=== PATIENT | male | born 1965 ===

== ENCOUNTER 2017-06-16 17:11 | Emergency (ER) | payer MEDICAID, OTHER ==
[2017-06-16 17:16] VITALS: BMI 29.2
[2017-06-16] MEDS ORDERED: Sodium Chloride 0.9% 1,000 ML IV STA (18:05)
--- NOTE | 2017-06-16 18:10 | ED PDOC ---
Arrival/HPI - General Chief Complaint: Headache Time Seen by Provider: 06/16/17 17:24 Historian: Family (daughter translated ) EM Caveat: Language Barrier - History of Present Illness Narrative History of Present Illness (Text): 06/16/17 18:10 A 51 year old male, who has a past medical history of migraines, presents to the emergency department with his daughter for severe headache with nausea and dizziness, which began about 5 hours ago. The daughter translates completely for the patient. The patient admits that the headache worsened as time goes on rather a severe sudden onset presentation. The features feel like previous migraines, per patient. He denies any vomiting, chest pain, focal weakness, fever, abdominal pain, or any other complaints at this time. Time/Duration: 4-6 hours (x5 hours) Symptom Onset: Sudden Symptom Course: Unchanged Activities at Onset: Rest Context: Home Past Medical History - Provider Review Nursing Documentation Reviewed: Yes - Infectious Disease Hx of Infectious Diseases: None - Cardiac Hx Cardiac Disorders: No (pt denies) - Pulmonary Hx Respiratory Disorders: No - Neurological Hx Migraine: Yes - HEENT Hx HEENT Disorder: No - Renal Hx Renal Disorder: No - Endocrine/Metabolic Hx Endocrine Disorders: No - Hematological/Oncological Hx Blood Disorders: No - Integumentary Hx Dermatological Disorder: No - Musculoskeletal/Rheumatological Hx Musculoskeletal Disorders: No - Gastrointestinal Hx Gastritis: Yes - Genitourinary/Gynecological Hx Genitourinary Disorders: Yes Hx Prostate Problems: Yes - Psychiatric Hx Psychophysiologic Disorder: Yes Hx Anxiety: Yes Hx Depression: Yes Hx Substance Use: No - Anesthesia Hx Anesthesia: No Family/Social History - Physician Review Nursing Documentation Reviewed: Yes Family/Social History: Unknown Family HX Smoking Status: Never Smoked Hx Alcohol Use: No Hx Substance Use: No Allergies/Home Meds Allergies/Adverse Reactions: Allergies No Known Allergies Allergy (Verified 11/17/15 13:48) Review of Systems - Physician Review All systems were reviewed & negative as marked: Yes - Review of Systems Respiratory: absent: SOB Cardiovascular: absent: Chest Pain Gastrointestinal: Nausea. absent: Vomiting Neurological: Headache, Dizziness Physical Exam Vital Signs Reviewed: Yes Vital Signs Temp Pulse Resp BP Pulse Ox 06/16/17 19:15 78 16 122/67 97 06/16/17 19:12 97.6 F 68 18 116/70 100 06/16/17 17:19 97.5 F L 64 18 110/70 97 Temperature: Afebrile Blood Pressure: Normal Pulse: Regular Respiratory Rate: Normal Appearance: Positive for: Well-Appearing, Non-Toxic, Comfortable Pain Distress: None Mental Status: Positive for: Alert and Oriented X 3 - Systems Exam Head: Present: Atraumatic, Normocephalic Pupils: Present: PERRL Extroacular Muscles: Present: EOMI Conjunctiva: Present: Normal Mouth: Present: Moist Mucous Membranes Pharnyx: Present: Normal. No: ERYTHEMA, EXUDATE Neck: Present: Normal Range of Motion Respiratory/Chest: Present: Clear to Auscultation, Good Air Exchange. No: Respiratory Distress, Accessory Muscle Use Cardiovascular: Present: Regular Rate and Rhythm, Normal S1, S2. No: Murmurs Abdomen: Present: Normal Bowel Sounds. No: Tenderness, Distention, Peritoneal Signs Back: Present: Normal Inspection Upper Extremity: Present: Normal Inspection. No: Cyanosis, Edema Lower Extremity: Present: Normal Inspection. No: Edema Neurological: Present: GCS=15, CN II-XII Intact, Speech Normal, Motor Func Grossly Intact, Normal Sensory Function, Gait Normal Skin: Present: Warm, Dry, Normal Color. No: Rashes Psychiatric: Present: Alert, Oriented x 3, Normal Insight, Normal Concentration Medical Decision Making ED Course and Treatment: 06/16/17 18:23 Impression: A 51 year old male with a headache. Differential Diagnosis included but are not limited to: migraine headache vs tension headache vs SAH Plan: -- Brain CT -- Labs -- Pepcid, Toradol, Reglan, IV Fluids -- Reassess and disposition Prior Visits: Notes and results from previous visits were reviewed. The patient was last seen in the emergency department on 11/17/15 for fever. The patient was discharged home. Progress Notes: 06/16/17 19:59 CT Brain: FINDINGS: BRAIN: No significant acute abnormality identified. No acute hemorrhage seen within the brain. No acute extra-axial fluid collections visualized. No evidence of significant mass effect within the brain. Normal medley-white matter differentiation. VENTRICLES: No evidence of significant hydrocephalus. BONES/JOINTS: Incidental dense, well-defined 1.5 x 0.5 cm sclerotic lesion in the right frontal skull anteriorly, most likely representing a bone island. This has nonaggressive features by CT. SOFT TISSUES: No acute abnormality of the visualized soft tissues is seen. SINUSES: Mild sinus inflammatory disease. There is mild to moderate mucosal thickening in the bilateral ethmoid sinuses and mild mucosal thickening in the right sphenoid and right frontal sinuses. No evidence of sinus fluid levels. MASTOID AIR CELLS: Mastoid air cells appear clear. IMPRESSION: - No acute findings seen within the brain. - Mild sinus inflammatory disease. - See above for remaining findings. Patient with noted history with normal neuro exam. Brain CT results as noted with no acute findings. Labs are unremarkable. Patient says he feels much better after meds - will dc on fioricet and have him f/u neuro. - Lab Interpretations Lab Results: 06/16/17 17:40 06/16/17 17:40 Lab Results 06/16/17 17:40: Sodium 138, Potassium 3.7, Chloride 98, Carbon Dioxide 28, Anion Gap 16, BUN 18, Creatinine 1.1, Est GFR ( Amer) > 60, Est GFR (Non- Af Amer) > 60, Random Glucose 108, Calcium 9.0, Total Bilirubin 0.5, AST 47, ALT 45, Alkaline Phosphatase 86, Total Protein 7.9, Albumin 4.5, Globulin 3.4, Albumin/Globulin Ratio 1.3, Lipase 178 06/16/17 17:40: PT 10.3, INR 0.95, APTT 25.5 06/16/17 17:40: WBC 5.4 D, RBC 4.69, Hgb 14.5, Hct 41.9 L, MCV 89.3, MCH 30.9, MCHC 34.6, RDW 12.2, Plt Count 254, MPV 9.8, Gran % 54.1, Lymph % (Auto) 31.6, [place] % (Auto) 5.5, Eos % (Auto) 8.1 H, Baso % (Auto) 0.7, Gran # 2.94, Lymph # 1.7, [place] # 0.3, Eos # 0.4, Baso # 0.04 - RAD Interpretation Radiology Orders: 06/16/17 18:06 Brain [HEAD W/O CONTRAST] [CT] Stat - Medication Orders Current Medication Orders: Discontinued Medications Famotidine (Pepcid) 20 mg IVP STAT STA Stop: 06/16/17 18:07 Last Admin: 06/16/17 18:28 Dose: 20 mg Sodium Chloride (Sodium Chloride 0.9%) 1,000 mls @ 999 mls/hr IV .Q1H1M STA Stop: 06/16/17 19:05 Last Admin: 06/16/17 18:24 Dose: 999 mls/hr Ketorolac Tromethamine (Toradol) 30 mg IVP STAT STA Stop: 06/16/17 18:06 Last Admin: 06/16/17 18:25 Dose: 30 mg Metoclopramide HCl (Reglan) 10 mg IVP STAT STA Stop: 06/16/17 18:06 Last Admin: 06/16/17 18:20 Dose: 10 mg - Scribe Statement The provider has reviewed the documentation as recorded by the Marixa Cruz Provider Scribe Attestation: All medical record entries made by the Scribe were at my direction and personally dictated by me. I have reviewed the chart and agree that the record accurately reflects my personal performance of the history, physical exam, medical decision making, and the department course for this patient. I have also personally directed, reviewed, and agree with the discharge instructions and disposition. Disposition/Present on Arrival - Present on Arrival Any Indicators Present on Arrival: No History of DVT/PE: No History of Uncontrolled Diabetes: No Urinary Catheter: No History of Decub. Ulcer: No History Surgical Site Infection Following: None - Disposition Have Diagnosis and Disposition been Completed?: Yes Diagnosis: Headache Disposition: HOME/ ROUTINE Disposition Time: 20:00 Patient Plan: Discharge Condition: GOOD Discharge Instructions (ExitCare): Migraine Headache (ED) Print Language: KYRGYZ Additional Instructions: Drink plenty of fluids. Avoid any substances that induce migraine headaches. Take the fioricet as needed for headache. Follow up with neurology. Return to the emergency department if any new concerning symptoms. Prescriptions: Acetaminophen/Butalbital/Caf [Fioricet] 1 - 2 tab PO Q6H PRN #15 tab PRN Reason: Headache Referrals: Alisson Moreno DO [Primary Care Provider] - Follow up with primary Homar Sheppard MD [Staff Provider] - Follow up with primary Forms: [employer] ([place])
[2017-06-16 18:20] LABS: BASO # 0.04 K/mm3 (0.0-2.0); BASO % 0.7 % (0.0-3.0); EOS # 0.4 (0.0-0.7); EOS % 8.1 % (1.5-5.0); GRAN # 2.94 (1.4-6.5); GRAN % 54.1 % (50.0-68.0); HEMATOCRIT 41.9 % (42.0-52.0); LYMPH # 1.7 (1.2-3.4); LYMPH % 31.6 % (22.0-35.0); MEAN CELL VOLUME 89.3 fl (80.0-105.0); MEAN CORPUSCULAR HEMOGLOBIN 30.9 pg (25.0-35.0); MEAN CORPUSCULAR HGB CONC 34.6 g/dl (31.0-37.0); MEAN PLATELET VOLUME 9.8 fl (7.0-11.0); MONO # 0.3 (0.1-0.6); MONO % 5.5 % (1.0-6.0); RED CELL DISTRIBUTION WIDTH 12.2 % (11.5-14.5); WHITE BLOOD COUNT 5.4 10^3/ul (4.5-11.0)
[2017-06-16 18:33] LABS: INR 0.95 (0.93-1.08); PARTIAL THROMBOPLASTIN TIME 25.5 Seconds (23.7-30.8)
[2017-06-16 18:38] LABS: ALB/GLOB RATIO 1.3 (1.1-1.8); ALKALINE PHOSPHATASE 86 U/L (38-126); ALT/SGPT 45 U/L (7-56); AST/SGOT 47 U/L (17-59); BILIRUBIN,TOTAL 0.5 mg/dL (0.2-1.3); BLOOD UREA NITROGEN 18 mg/dL (7-21); CARBON DIOXIDE 28 mmol/L (21-33); CHLORIDE 98 mmol/L (98-107); GFR AFRICAN-AMERICAN > 60; GLUCOSE,RANDOM 108 mg/dL (70-110); LIPASE 178 U/L (23-300); POTASSIUM 3.7 mmol/L (3.6-5.0); SODIUM 138 mmol/L (132-148); TOTAL PROTEIN 7.9 g/dL (5.8-8.3)
[2017-06-16 19:19] VITALS: RESP 16; TEMP 97.6
--- NOTE | 2017-06-16 19:38 | CT ---
EXAM: CT Head Without Intravenous Contrast EXAM DATE/TIME: 06/16/2017 6:06 PM CLINICAL HISTORY: 51 years old, male; Pain; Headache; Additional info: Headache, dizzy TECHNIQUE: Axial computed tomography images of the head/brain without intravenous contrast. All CT scans at this facility use one or more dose reduction techniques, viz.: automated exposure control; ma/kV adjustment per patient size (including targeted exams where dose is matched to indication; i.e. head); or iterative reconstruction technique. COMPARISON: No relevant prior studies available. FINDINGS: BRAIN: No significant acute abnormality identified. No acute hemorrhage seen within the brain. No acute extra-axial fluid collections visualized. No evidence of significant mass effect within the brain. Normal medley-white matter differentiation. VENTRICLES: No evidence of significant hydrocephalus. BONES/JOINTS: Incidental dense, well-defined 1.5 x 0.5 cm sclerotic lesion in the right frontal skull anteriorly, most likely representing a bone island. This has nonaggressive features by CT. SOFT TISSUES: No acute abnormality of the visualized soft tissues is seen. SINUSES: Mild sinus inflammatory disease. There is mild to moderate mucosal thickening in the bilateral ethmoid sinuses and mild mucosal thickening in the right sphenoid and right frontal sinuses. No evidence of sinus fluid levels. MASTOID AIR CELLS: Mastoid air cells appear clear. IMPRESSION: - No acute findings seen within the brain. - Mild sinus inflammatory disease. - See above for remaining findings.
[2017-06-16 20:00] VITALS: BP 114/73; PULSE 73; O2SAT 100
--- NOTE | 2017-06-17 12:12 | CARD ---
APPROVED REPORT EKG Measurement Heart [id number] <Conclusion> Normal sinus rhythm Septal infarct, age undetermined Abnormal ECG
== END 2017-06-16 20:13 | disposition home or self-care (01) ==
LOC: ED 17:11
DX: R51 Headache (principal)
CPT/HCPCS: 70450; 80053; 83690; 85025; 85610; 85730; 93005; 96361; 96374; 96375; 99285; J1885; J2765; J7040